=== PATIENT | female | born 1980 | race Two or more races ===

== ENCOUNTER 2025-04-04 14:15 | Emergency (ER) | payer MEDICAID, SELFPAY ==
[2025-04-04 14:29] VITALS: BP 119/74; PULSE 88; RESP 20; TEMP 36.6; O2SAT 98
--- NOTE | 2025-04-04 14:30 | XR_ITS ---
Examination: CT brain head without contrast. 2-D sagittal coronal reconstructions Date and time of exam:April 04, 2025 1809 hours INDICATIONS: Ground-level fall today with image of the head, head pain CTDI: vol (mGy):50.6 DLP: (mGycm):982 Technique: Multiple CT axial sections of the brain have been obtained, 5 mm slice thickness. Contrast has not been administered. 2-D sagittal, coronal reconstructions have been obtained Low dose protocols were performed. One or more of the following dose reduction techniques were used; automated exposure control, adjustment of the mA and/or KV according to patient size, use of iterative reconstruction technique. Findings: No significant ventricular enlargement. Intra-axial or extra-axial hemorrhage density is not seen. No mass effect or midline shift Basal cisterns are not remarkable. Fourth ventricle is midline. Cranial vault intact. Impression: Negative for acute hemorrhage, mass effect or midline shift
--- NOTE | 2025-04-04 14:30 | XR_ITS ---
Examination: CT cervical spine without contrast 2-D sagittal reconstructions 2-D coronal reconstructions 3-D reconstructions. Exam date and time:April 04, 2025 1803 hours INDICATIONS: Ground-level fall today with injury to the back of the neck, neck pain CTDI:vol (mGy) 15 DLP: (mGycm) 335 Technique: Multiple 2 mm axial sections of the cervical spine have been obtained. The coronal and sagittal reconstructions have been obtained. 3-D reconstructions have been obtained. Low dose protocols were performed. One or more of the following dose reduction techniques were used; automated exposure control, adjustment of the mA and/or KV according to patient size, use of iterative reconstruction technique. Findings: Axial sections demonstrate intact base of the skull. C1 exhibit satisfactory relationship to the odontoid. No acute cervical vertebral body fracture seen. Alignment posterior spinous processes satisfactory. Impression: No acute cervical fracture.
--- NOTE | 2025-04-04 15:01 | PD.EDFALL ---
ED Fall Injury RME/HPI General Chief Complaint: Fall Stated Complaint: Fell and hit her head this am Time Seen by Provider: 04/04/25 14:21 Source: patient Arrival date/time: 04/04/25 14:15 45-year-old female with no known medical history presents to the emergency room with a chief complaint of a 10 out of 10 headache and neck pain after a ground-level fall that occurred this morning Mode of arrival: ambulatory Limitations: no limitations Related Data Allergies Allergy/AdvReac Type Severity Reaction Status Date / Time NKA Allergy Unknown Uncoded 04/04/25 14:22 ED Exam General Limitations: Present no limitations Course Orders Category Date Time Status CT cervical spine wo con Stat Exams 04/04/25 14:[address] head/brain wo con Stat Exams 04/04/25 14:30 Ordered Vital Signs Vital signs: Vital Signs Temperature 97.9 F 04/04/25 14:29 Pulse Rate 88 04/04/25 14:29 Respiratory Rate 20 04/04/25 14:29 Blood Pressure 119/74 04/04/25 14:29 Pulse Oximetry (%) 98 04/04/25 14:29 Oxygen Delivery Method Room Air 04/04/25 14:29 Discharge Plan Prescriptions/Referrals Referrals: Abbey Miller NP [Primary Care Provider] - In 1 week Patient/Caregiver Discharge Instructions Print Language: Tajik
--- NOTE | 2025-04-04 18:02 | EDRME_ITS ---
Rapid Medical Screening Exam RME Arrival date/time: 04/04/25 14:15 45-year-old female with no known medical history presents to the emergency room with a chief complaint of a 10 out of 10 headache and neck pain after a ground- level fall that occurred this morning I have greeted and performed a focused initial assessment of this patient. A comprehensive ED assessment and evaluation of the patient, analysis of all test results, and completion of the medical decision making process will be conducted by additional ED providers. Chief Complaint: Fall Time Seen by Provider: 04/04/25 14:21 Vital signs: Vital Signs Temperature 97.9 F 04/04/25 14:29 Pulse Rate 88 04/04/25 14:29 Respiratory Rate 20 04/04/25 14:29 Blood Pressure 119/74 04/04/25 14:29 Pulse Oximetry (%) 98 04/04/25 14:29 Oxygen Delivery Method Room Air 04/04/25 14:29 Vital signs reviewed by provider: Yes
--- NOTE | 2025-04-04 20:09 | EDNOTE_ITS ---
ED Fall Injury RME/HPI General Chief Complaint: Fall Stated Complaint: Fell and hit her head this am Time Seen by Provider: 04/04/25 14:21 Arrival date/time: 04/04/25 14:15 RME / HPI RME / HPI Narrative: 04/04/25 14:15 45-year-old female with no known medical history presents to the emergency room with a chief complaint of a 10 out of 10 headache and neck pain after a ground- level fall that occurred this morning I have greeted and performed a focused initial assessment of this patient. A comprehensive ED assessment and evaluation of the patient, analysis of all test results, and completion of the medical decision making process will be conducted by additional ED providers. -------- Dr. Farrell?s Main ED Evaluation: 45yo female presents after suffering a ground-level fall, hitting her posterior occiput earlier today. No LOC or altered level of consciousness. Patient fully recalls the event. She does complain of pain at the site of impact and diffusely throughout her head. She does have nausea, but no vomiting. She also have mild neck discomfort without radiculopathy and mild visual disturbance, but no gait disturbance. PMH and PSH unremarkable. Social history includes no tobacco and alcohol use. NKDA. Related Data Previous Rx's ?Medication ?Instructions ?Recorded baclofen 5 mg tablet 5 mg PO TID muscle spasm #15 tabs 04/04/25 naproxen 250 mg tablet 250 mg PO BID PRN pain #10 t abs 04/04/25 promethazine 12.5 mg tablet 12.5 mg PO TID PRN nausea #12 tabs 04/04/25 Allergies Allergy/AdvReac Type Severity Reaction Status Date / Time NKA Allergy Unknown Uncoded 04/04/25 14:22 Review of Systems Review of Systems Systems Reviewed: All systems reviewed, normal except as documented ED Exam Narrative Physical exam: GENERAL APPEARANCE: alert and oriented x 4, well-developed, well-nourished, no acute distress VITALS: All vitals were reviewed and the pulse ox is 98% on room air, which is normal according to my interpretation. HEENT: Normocephalic, marked tenderness at the mid posterior occipital scalp, no step-off, slight edema; pupils equal, round, reactive to light; EOMI; mucous membranes pink, moist; oropharynx clear NECK: Supple, negative axial compression test; mild tenderness at the C/T junction LUNGS: CTABL; no wheezes, no rales, no rhonchi HEART: Regular rate, regular rhythm; normal S1, S2; no murmurs ABDOMEN: non distended; normal BS; soft, no tenderness, no guarding, no rebound; no masses, no organomegaly, no hernia BACK: no CVA tenderness EXTREMITIES: atraumatic; no edema NEUROLOGIC: awake; alert and oriented x4; GCS 15; cranial nerves II-XII grossly intact; no focal sensory or motor deficits; normal gait observed, no ataxia PSYCHIATRIC: appropriate mood and affect SKIN: warm, dry, normal color; no rashes Course Quality Measures none Orders Category Date Time Status CT cervical spine wo con Stat Exams 04/04/25 14:[address] head/brain wo con Stat Exams 04/04/25 14:30 Completed Vital Signs Vital signs: Vital Signs Temperature 97.9 F 04/04/25 14:29 Pulse Rate 88 04/04/25 14:29 Respiratory Rate 20 04/04/25 14:29 Blood Pressure 119/74 04/04/25 14:29 Pulse Oximetry (%) 98 04/04/25 14:29 Oxygen Delivery Method Room Air 04/04/25 14:29 Fall MDM Narrative MDM Narrative:: Scribe Attestation: 04/04/25 Serene Akhtar am scribing for and in the presence of Dr. Farrell. 45yo female presents after suffering a ground-level fall, hitting her posterior occiput earlier today. No LOC or altered level of consciousness. Please see PE findings. Lab markers deferred. Patient underwent CT of the brain and CT cervical spine, which were both unremarkable. Patient remained neurologically intact and is considered stable for discharge home. Will treat for head contusion/mild cervical strain and will be discharged home on Naprosyn and Flexiril. Precaution instructions issued. Dx: head contusion, cervical sprain. Patient data External records reviewed:: [facility] previous records (Per chart review, patient has no previous ED visits or admissions to this facility.) Clinical information provided by:: patient Social determinants that could affect healthcare access:: none Patient has the following chronic illnesses:: none How is presenting disease/condition affected by chronic disease/condition?: no chronic disease Evaluation data The following diagnostics were reviewed and interpreted by me:: radiology exam(s) Lab and/or radiology exams considered but not ordered:: none Interpretation Summary: [facility] Report Signed Patient: HALINA BENITES Record#: [id number] Birthdate: 1980 Age/Sex: 45 / F Location: [facility] Attending Dr: Ordering Physician: Jeanmarie Alfaro Date of Service: 04/04/25 Procedure(s): CT head/brain wo con Accession Number(s): [id number] cc: Jeanmarie Alfaro; Bill Chavira MD; Abbey Miller NP~ Examination: CT brain head without contrast. 2-D sagittal coronal reconstructions Date and time of exam:April 04, 2025 1809 hours INDICATIONS: Ground-level fall today with image of the head, head pain CTDI: vol (mGy):50.6 DLP: (mGycm):982 Technique: Multiple CT axial sections of the brain have been obtained, 5 mm slice thickness. Contrast has not been administered. 2-D sagittal, coronal reconstructions have been obtained Low dose protocols were performed. One or more of the following dose reduction techniques were used; automated exposure control, adjustment of the mA and/or KV according to patient size, use of iterative reconstruction technique. Findings: No significant ventricular enlargement. Intra-axial or extra-axial hemorrhage density is not seen. No mass effect or midline shift Basal cisterns are not remarkable. Fourth ventricle is midline. Cranial vault intact. Impression: Negative for acute hemorrhage, mass effect or midline shift Dictated By: Bill Chavira MD Signed By: <Electronically signed by Bill Chavira MD in [place]> 04/04/25 1846 [facility] Report Signed Patient: HALINA BENITES Record#: [id number] Birthdate: 1980 Age/Sex: 45 / F Location: [facility] Attending Dr: Ordering Physician: Jeanmarie Alfaro Date of Service: 04/04/25 Procedure(s): CT cervical spine wo con Accession Number(s): [id number] cc: Jeanmarie Alfaro; Bill Chavira MD; Abbey Miller NP~ Examination: CT cervical spine without contrast 2-D sagittal reconstructions 2-D coronal reconstructions 3-D reconstructions. Exam date and time:April 04, 2025 1803 hours INDICATIONS: Ground-level fall today with injury to the back of the neck, neck pain CTDI:vol (mGy) 15 DLP: (mGycm) 335 Technique: Multiple 2 mm axial sections of the cervical spine have been obtained. The coronal and sagittal reconstructions have been obtained. 3-D reconstructions have been obtained. Low dose protocols were performed. One or more of the following dose reduction techniques were used; automated exposure control, adjustment of the mA and/or KV according to patient size, use of iterative reconstruction technique. Findings: Axial sections demonstrate intact base of the skull. C1 exhibit satisfactory relationship to the odontoid. No acute cervical vertebral body fracture seen. Alignment posterior spinous processes satisfactory. Impression: No acute cervical fracture. Dictated By: Bill Chavira MD Signed By: <Electronically signed by Bill Chavira MD in [place]> 04/04/25 1848 Medications / Prescriptions Medications or Prescriptions considered but not ordered:: none Medication administrations:: see above, if any Consultations Consultation(s) initiated? (list below): No Diagnosis Fall Differential Diagnosis: other (fall, ICH, skull fracture, contusion, headache, neck strain) Most likely diagnosis given after review of the tests above:: head contusion, cervical sprain Admission Indicated Admission indicated?: not indicated Admission Request Was there a request for admission?: No Disposition Plan Disposition Plan: Discharge Discharge Attestation Discharge Attestation: The patient and all family members were given an opportunity to ask questions and understood the discharge instructions. Discharge instructions specifically effects, indications for sooner follow up or return to the emergency department, and the expected course of current diagnosis. Patient condition: Stable Discharge Plan Plan Patient Disposition: HOME (Self Care) Discharge Disposition comment: Stable Prescriptions/Referrals Prescriptions/Med Rec: New naproxen 250 mg tablet 250 mg PO BID PRN (Reason: pain) Qty: 10 0RF promethazine 12.5 mg tablet 12.5 mg PO TID MDD 3 tab PRN (Reason: nausea) Qty: 12 0RF baclofen 5 mg tablet 5 mg PO TID Qty: 15 0RF Referrals: Abbey Miller [employer] [Primary Care Provider] - In 1 week Problem List Clinical Impression: Contusion of head, Acute neck sprain Patient/Caregiver Discharge Instructions Education Materials: ED Head Injury (Adult), ED Neck Sprain or Strain Additional Instructions: Ice compresses, maintain head of bed elevation, medications as directed. Follow-up as needed return if escalating headaches nausea vomiting or worsening illness. Print Language: Mohawk Stand Alone Forms: [employer] Award Info., Patient Portal Info Letter
[2025-04-04 20:54] VITALS: RESP 16
== END 2025-04-04 20:54 | disposition home or self-care (01) ==
PROVIDERS: Emergency Provider Emergency Medicine; PCP Nurse Practitioner Family
DX: S00.93XA Contusion of unspecified part of head, initial encounter (principal); S13.9XXA Sprain of joints and ligaments of unspecified parts of neck, initial encounter; W18.30XA Fall on same level, unspecified, initial encounter
CPT/HCPCS: 70450; 72125; 99283